=== PATIENT | female | born 1935 | race Two or more races ===

== ENCOUNTER 2024-12-23 10:27 | Inpatient (IN) | payer MEDICARE, OTHER ==
[~2024-12-23] VITALS: Ht 167.6 cm; Wt 60.8 kg
[2024-12-23 10:57] LABS: PLATELET COUNT (AUTO) 165 K/uL (150-450); RED BLOOD CELL COUNT(AUTO) 3.99 MIL/uL (4.0-5.2); RED CELL DISTRIBUTION WIDTH 14.6 % (11.5-15.0); WHITE BLOOD COUNT (AUTO) 5.3 K/uL (4.3-11.0)
[2024-12-23] MEDS ORDERED: MIDODRINE HCL (5MG) 5 MG TABLET ONE (11:11)
[2024-12-23 11:12] LABS: CALCIUM, SERUM 9.3 mg/dL (8.5-10.1); CREATININE 1.0 mg/dL (0.6-1.3); SODIUM SERUM 137 mmol/L (136-145); UREA NITROGEN, BLOOD 21 mg/dL (7-18)
[2024-12-23 11:15] LABS: ASPARTATE AMINOTRANSFERASE 26 U/L (15-37); TOTAL PROTEIN, SERUM 6.4 g/dL (6.4-8.2)
[2024-12-23] MEDS: MIDODRINE HCL (5MG) 5 MG TABLET PO STA (11:18)
[2024-12-23 11:19] LABS: LACTIC ACID 1.6 mmol/L (0.4-2.0)
[2024-12-23 11:24] LABS: NT-PRO BNP 508.0 pg/mL (0-125)
[2024-12-23] MEDS ORDERED: IOHEXOL-350 100 ML VIAL IV ONE (11:44)
[2024-12-23] MEDS ORDERED: IV NS 0.9% 250 ML IV ONE (11:44)
[2024-12-23] MEDS ORDERED: CT SWABBABLE VALVE TRANS SET 1 EA INFUS.SET MC ONE (11:44)
[2024-12-23] MEDS ORDERED: METO25TA4 PO (11:55)
[2024-12-23] MEDS ORDERED: SACU1TAB PO (11:55)
[2024-12-23] MEDS ORDERED: GABA-532 PO (11:55)
[2024-12-23] MEDS ORDERED: SODI15VI10 IH (11:55)
[2024-12-23] MEDS ORDERED: AMLO2.5T2 PO (11:55)
[2024-12-23] MEDS ORDERED: UMEC62.5 IH (11:55)
[2024-12-23] MEDS ORDERED: AMIO100T4 PO (11:55)
[2024-12-23] MEDS ORDERED: DAPA5TAB PO (11:55)
[2024-12-23] MEDS ORDERED: HYDR25TA4 PO (11:55)
[2024-12-23] MEDS ORDERED: APIX2.5T PO (11:55)
[2024-12-23] MEDS: IV NS 0.9% 1,000 ML BAG IV ONE (12:46)
[2024-12-23] MEDS ORDERED: AMLODIPINE BESYLATE 2.5 MG TABLET PO PRN (14:00)
[2024-12-23 16:00] VITALS: BP 107/66; TEMP 97.3; O2SAT 98
[2024-12-23] MEDS: APIXABAN 2.5 MG TABLET PO SCH (16:43)
[2024-12-23 19:55] LABS: AMPHETAMINE, URINE NEGATIVE (NEGATIVE); BARBITURATE, URINE NEGATIVE (NEGATIVE); BENZODIAZEPINE, URINE NEGATIVE (NEGATIVE); CANNABINOID, URINE NEGATIVE (NEGATIVE); COCCAINE, URINE NEGATIVE (NEGATIVE); OPIATE, URINE NEGATIVE (NEGATIVE)
[2024-12-23 20:00] VITALS: BP 94/55; TEMP 97.9; O2SAT 95
[2024-12-23 20:10] VITALS: O2SAT 98
[2024-12-23] MEDS: IPRATROPIUM NEB FS 0.5 MG/2.5 ML AMPUL.NEB NEB SCH (20:10)
[2024-12-23 20:20] VITALS: O2SAT 95
[2024-12-23] MEDS: GABAPENTIN 100 MG CAPSULE PO SCH (21:21)
[2024-12-24] VITALS (13 sets, daily range): BP systolic 102–130; BP diastolic 57–72; TEMP 97.9–98.2; O2SAT 92–100
[2024-12-24 07:58] LABS: PLATELET COUNT (AUTO) 158 K/uL (150-450); RED BLOOD CELL COUNT(AUTO) 3.56 MIL/uL (4.0-5.2); RED CELL DISTRIBUTION WIDTH 14.6 % (11.5-15.0); WHITE BLOOD COUNT (AUTO) 5.3 K/uL (4.3-11.0)
[2024-12-24] MEDS: PANTOPRAZOLE 40 MG TABLET.DR PO SCH (08:03)
[2024-12-24] MEDS: METOPROLOL SUCCINATE 25 MG TAB.SR.24H PO SCH (08:39)
[2024-12-24] MEDS: AMIODARONE HCL 200 MG TABLET PO SCH (08:39)
[2024-12-24] MEDS: DAPAGLIFLOZIN PROPANEDIOL 5 MG TABLET PO SCH (08:44)
[2024-12-24] MEDS ORDERED: SODIUM CL FOR INHALATION 3% 15 ML VIAL.NEB IH SCH (09:00)
[2024-12-24 09:15] LABS: INR 1.0 (0.91-1.10)
[2024-12-24 09:58] LABS: CALCIUM, SERUM 8.8 mg/dL (8.5-10.1); CREATININE 0.6 mg/dL (0.6-1.3); SODIUM SERUM 141.0 mmol/L (136-145); UREA NITROGEN, BLOOD 17.0 mg/dL (7-18)
[2024-12-24 10:27] LABS: LDL 106.0 mg/dL (0-99)
[2024-12-25] VITALS: BP 128/68; TEMP 98.2; O2SAT 100
[2024-12-25 04:00] VITALS: BP 122/70; TEMP 98.4; O2SAT 100
[2024-12-25 07:18] LABS: PLATELET COUNT (AUTO) 160 K/uL (150-450); RED BLOOD CELL COUNT(AUTO) 3.83 MIL/uL (4.0-5.2); RED CELL DISTRIBUTION WIDTH 14.9 % (11.5-15.0); WHITE BLOOD COUNT (AUTO) 5.4 K/uL (4.3-11.0)
[2024-12-25 08:00] VITALS: BP 134/79; TEMP 97.3; O2SAT 97; O2SAT 98
[2024-12-25 08:09] LABS: CALCIUM, SERUM 8.7 mg/dL (8.5-10.1); CREATININE 0.7 mg/dL (0.6-1.3); SODIUM SERUM 144.0 mmol/L (136-145); UREA NITROGEN, BLOOD 18.0 mg/dL (7-18)
[2024-12-25 08:15] VITALS: O2SAT 100
[2024-12-25 12:00] VITALS: BP 124/75; TEMP 97.3; O2SAT 98
== END 2024-12-25 18:54 | disposition home health service (06) | DRG 312 ==
LOC: ER 10:37 → TELE1 12:47
PROVIDERS: ADMIT Nurse Practitioner Acute Care; ATTEND Internal Medicine
DX: I95.1 Orthostatic hypotension (principal); I50.32 Chronic diastolic (congestive) heart failure; H81.10 Benign paroxysmal vertigo, unspecified ear; E86.0 Dehydration; I11.0 Hypertensive heart disease with heart failure; J45.909 Unspecified asthma, uncomplicated; R29.700 NIHSS score 0; Z79.01 Long term (current) use of anticoagulants; Z79.84 Long term (current) use of oral hypoglycemic drugs; Z88.8 Allergy status to other drugs, medicaments and biological substances; Z79.899 Other long term (current) drug therapy; I48.0 Paroxysmal atrial fibrillation; G62.9 Polyneuropathy, unspecified; E78.5 Hyperlipidemia, unspecified
CPT/HCPCS: 36415; 70450-TC; 71045-TC; 80048-TC; 80061-TC; 80076-TC; 83605-TC; 83880; 84443-TC; 84484-TC; 85025-TC; 85730-TC; 92526; 92611; 93880-TC; 94799-TC; 97110-TC; 97116-TC; 97530-TC; 97535-TC; G0378; J7030; J7050; Q9967